=== PATIENT | male | born 1985 | race Two or more races ===

== ENCOUNTER 2017-05-22 20:16 | Emergency (ER) | payer MEDICAID ==
[~2017-05-22] VITALS: Ht 170.2 cm; Wt 86.6 kg
[2017-05-22] MEDS ORDERED: Oxycodone/Acetaminophen 5-325 ORAL ONE (20:45)
[2017-05-22] MEDS ORDERED: CYCLOBENZAPRINE10 MG ORAL (21:59)
[2017-05-22] MEDS ORDERED: IBUPROFEN600 MG ORAL (21:59)
[2017-05-22 22:09] VITALS: BP_SYST 120; BP_SYST 122; BP_DIAS 71
--- NOTE | 2017-05-23 11:19 | Diagnostic Imaging Report ---
Indication: PAIN Technique: 3 views of the right shoulder Comparison: none Findings: No acute fractures. No dislocations. Joint spaces are preserved. Impression:Negative
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
--- NOTE | 2017-05-23 13:30 | Diagnostic Imaging Report ---
Indication: PAIN Technique: 2 views of the right hip Comparison: None Findings: No acute fractures. No dislocations. The joint spaces are preserved. Impression: Negative
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
== END 2017-05-22 22:10 | disposition home or self-care (01) ==
LOC: EDBD 20:16 → EMR 20:54
DX: M25.561 Pain in right knee (principal); M25.551 Pain in right hip; M25.511 Pain in right shoulder
CPT/HCPCS: 99284